=== PATIENT | male | born 1980 | race Caucasian/White ===

== ENCOUNTER 2018-07-02 06:58 | Day surgery (SDC) | payer BC ==
[2018-07-02] MEDS ORDERED: fentaNYL 100 MCG/2 ML SDV ONE (07:08)
[2018-07-02] MEDS ORDERED: Midazolam 1 MG/ML 2 ML SDV ONE (07:08)
[2018-07-02] MEDS ORDERED: Propofol 200 MG/20 ML SDV ONE ×2 (07:08→08:39)
[2018-07-02] MEDS ORDERED: Lactated Ringers 1,000 ML IV SCH (07:45)
[2018-07-02 10:46] VITALS: BP 98/60
--- NOTE | 2018-07-02 15:57 | OR ---
DATE OF PROCEDURE: 07/02/2018 PREOPERATIVE DIAGNOSES: 1. Reflux with eosinophilic esophagitis. 2. Diarrhea. 3. Blood in stool. POSTOPERATIVE DIAGNOSES: 1. Reflux with eosinophilic esophagitis. 2. Diarrhea. 3. Blood in stool. PROCEDURES PERFORMED: 1. Esophagogastroduodenoscopy with biopsy of gastroesophageal junction. 2. Colonoscopy to the cecum with random colonic biopsies looking for microscopic colitis. SURGEON: Angel Salinas MD. ANESTHESIA: IV anesthesia with monitored anesthesia care. INDICATION: This 37-year-old white male is referred for upper and lower endoscopies. He has reflux. He occasionally takes a proton pump inhibitor. He has a history of eosinophilic esophagitis. He is experiencing diarrhea and blood in his stool. A request was made then for upper and lower endoscopies with biopsies as indicated including to look for microscopic colitis. I counseled him for this, including risks and alternatives, and he gave his informed consent to proceed. DESCRIPTION OF PROCEDURE: The patient was placed in the left lateral decubitus position. IV anesthesia was administered by the Anesthesia Service. Time-out was held. The flexible video Olympus upper endoscope was passed through his mouth, down his esophagus, and into his stomach. The scope was easily passed through the pylorus into the duodenum , reaching its third portion. The scope was then slowly withdrawn examining the mucosa throughout. The duodenal mucosa appeared unremarkable. The scope was brought up through the pylorus. The antrum appeared unremarkable. The scope was retroflexed. The proximal stomach appeared unremarkable. The scope was straightened and brought up to the GE junction. There was evidence of old chronic changes. We obtained multiple, totalling at least 6, biopsies of the gastroesophageal junction. The scope was then brought up through the remainder of the esophagus, which otherwise appeared unremarkable, and it was removed. Next, a rectal exam was performed, which was unremarkable. The flexible video Olympus colonoscope was introduced through his anus, up his rectum and out his colon all the way to the cecum. Once the cecum was reached, the scope was slowly withdrawn examining the mucosa throughout. No mucosal abnormalities were noted. We did obtain random colonic biopsies throughout the entire colon and rectum. The scope was retroflexed in the rectum with the distal rectum appearing unremarkable. The scope was straightened and removed. He tolerated the procedure well. Angel Salinas MD /[id number] MTDD
== END 2018-07-02 10:51 | disposition home or self-care (01) ==
LOC: JP.SDS 06:58
PROVIDERS: ATTEND Surgery
DX: K20.0 Eosinophilic esophagitis (principal); K21.9 Gastro-esophageal reflux disease without esophagitis; K92.1 Melena; R19.7 Diarrhea, unspecified; E66.9 Obesity, unspecified; E78.5 Hyperlipidemia, unspecified; Z88.2 Allergy status to sulfonamides; Z88.8 Allergy status to other drugs, medicaments and biological substances
CPT/HCPCS: 43239; 45380; 88305; J2250; J2704; J3010; J7120